=== PATIENT | female | born 1940 | race Caucasian/White ===

== ENCOUNTER 2017-06-25 06:40 | Emergency (ER) | payer MEDICARE, OTHER ==
[~2017-06-25] VITALS: Ht 154.9 cm; Wt 70.0 kg
[~2017-06-25 06:40] MED LIST: AMLO-218 PO; GLYB1TAB3 PO; INSU100I13 SC; INSU100I15 SC; ISOS60TA52 PO; LOSA25TA2 PO; MONT10TA21 PO; PREG50CA PO; SERT50TA PO; SITA100T8 PO
[2017-06-25 06:42] VITALS: Ht 154.9 cm; Wt 70.0 kg
[2017-06-25] MEDS ORDERED: KETOROLAC 60 MG INJ IM STA (07:11)
--- NOTE | 2017-06-25 08:21 | RADRPT ---
PROCEDURE: XR right Shoulder. CLINICAL INDICATION: Right shoulder pain TECHNIQUE: 3 views of the right shoulder are available for review. COMPARISON: None available FINDINGS: There is no acute fracture. Alignment is normal. There is mild to moderate acromioclavicular osteoarthrosis. Soft tissues are grossly unremarkable. IMPRESSION: 1. No radiographic evidence of acute osseous abnormality. 2. 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 RPTAT: [facility] .David Pérez MD, Date Time Electronically viewed and signed by .David Pérez MD, on 06/25/2017 08:21 .K/
--- NOTE | 2017-06-25 08:23 | RADRPT ---
PROCEDURE: Ultrasound of the right upper extremity venous system. CLINICAL INDICATION: Right upper extremity swelling and pain.. TECHNIQUE: Wiggins scale with and without compression, color doppler, spectral doppler of the venous system of the bilateral upper extremity was performed. Venous augmentation maneuvers were utilized. COMPARISON: No prior studies are available for comparison. FINDINGS: RIGHT: Jugular vein: Patent and compressible. Subclavian vein: Patent and compressible. Axillary vein: Patent and compressible. Brachial vein: Patent and compressible. Basilic vein: Patent and compressible. Cephalic vein: Patent and compressible. Soft tissues:Normal IMPRESSION: 1. No evidence of right upper extremity deep vein thrombosis. RPTAT: [facility] Physician Chris Date Time Electronically viewed and signed by Physician Chris on 06/25/2017 08:23 /
--- NOTE | 2017-06-25 08:23 | RADRPT ---
PROCEDURE: XR Cervical Spine. CLINICAL INDICATION: Neck pain. TECHNIQUE: Three views of the cervical spine were performed. Frontal, lateral, and AP open-mouth o dontoid. The images were reviewed on a PACS workstation. COMPARISON: None. FINDINGS: There is no radiographic evidence of acute fracture. There is trace likely degenerative anterolisthe sis of C4 on C5, approximately 2 mm. There is moderate to severe degenerative disc disease at C5-C6 with moderate degenerative disease at C4-C5 and C6-C7. There is prominent degenerative anterior enthesopathy at C5-C6 as well as uncovert ebral hypertrophy. There is moderate facet arthrosis from C3-C4 through C6-C7. The lung apices are clear. The prevertebral soft tissues are normal. IMPRESSION: 1. No radiographic evidence of acute osseous abnormality of the cervical spine. 2. Trace probable degenerative anterolisthesis of C4 on C5. 3. Multilevel discogenic disease as above, moderate to severe and predominant at C5-C6. RPTAT: UU .David Pérez MD, MD Date Time Electronically viewed and signed by .David Pérez MD, on 06/25/2017 08:23 .K/
[2017-06-25] MEDS ORDERED: TRAM50TA2 PO (08:32)
[2017-06-25] MEDS ORDERED: DICL100G37 TOP (08:32)
[2017-06-25] MEDS ORDERED: MED4DP PO (08:33)
[2017-06-25 09:07] VITALS: BP 152/86; PULSE 79; RESP 20
--- NOTE | 2017-06-25 10:02 | ERD ---
ER Documentation Chief Complaint Date/Time DATE: 06/25/17 TIME: 09:52 Chief Complaint Complains of right shoulder pain is on continued Physiotheraphy No CP HPI 76-year-old female complaining of right shoulder pain. Patient states that she has had shoulder pain for the last month and has been seen by physical therapy and receiving treatment. Patient has not had any imaging and feels that her pain is worsening. Patient has been taking Tylenol and ibuprofen with no alleviation of symptoms. Patient is right-hand dominant. Patient feels she is losing mobility of her right arm secondary to pain. Denies traumatic injuries. Denies chest pains or shortness of breath. Have numbness in her right arm and states she has swelling in right upper extremity that is worse in the morning but seems to improve throughout the day. ROS All systems reviewed and are negative except as per history of present illness. Medications Home Meds Active Scripts Methylprednisolone* (Medrol* DOSE PACK) 4 Mg/Dose-Pack Tab.ds.pk, 4 MG PO . DIRECTED, #1 PACKET Prov:MANI CISNEROS PA-C 06/25/17 Diclofenac Sodium* (Voltaren* Gel) 1% -100 Gm Gel, 2 GM TOP QID, #1 TUB Prov:MANI CISNEROS PA-C 06/25/17 Tramadol HCl (Tramadol HCl) 50 Mg Tablet, 50 MG PO Q4 Y for PAIN, #20 TAB Prov:MANI CISNEROS PA-C 06/25/17 Reported Medications Insulin Glargine,Hum.rec.anlog (Lantus Solostar) 100 Units/Ml Pen, 32 UNITS SC BID 06/03/12 Insuln Asp Prt/Insulin Aspart* (Novolog Mix 70-30 Flexpen*) 100 Units/Ml Pen, UNITS SC WITH MEALS 06/03/12 Pregabalin* (Lyrica*) 50 Mg Capsule, 50 MG PO BID 06/03/12 Sertraline Hcl* (Zoloft*) 50 Mg Tablet, 50 MG PO DAILY 06/03/12 Glyburide, Micro-Metformin Hcl (Glucovance) 1 Tab Tablet, 2 TAB PO BID 06/03/12 Losartan Potassium* (Cozaar*) 25 Mg Tablet, 25 MG PO DAILY 06/03/12 Montelukast Sodium* (Singulair*) 10 Mg Tablet, 10 MG PO DAILY 06/03/12 Sitagliptin* (Januvia*) 100 Mg Tablet, 100 MG PO DAILY 06/03/12 Isosorbide Mononitrate* (Imdur*) 60 Mg Tab.sr.24h, 60 MG PO DAILY 06/03/12 Amlodipine Besylate* (Norvasc*) 10 Mg Tablet, 10 MG PO DAILY 06/03/12 Allergies Allergies: Coded Allergies: Penicillins (Verified Allergy, Unknown, 06/25/17) codeine (Verified Allergy, Unknown, 06/25/17) morphine (Verified Allergy, Unknown, 06/25/17) valsartan (Verified Allergy, Unknown, 06/25/17) PMhx/Soc History of Surgery: Yes (R KNEE SURGERY 2009; HYSTERRECTOMY) Anesthesia Reaction: No Hx Neurological Disorder: No Hx Respiratory Disorders: Yes (BRONCHITIS) Hx Cardiac Disorders: Yes (HTN, [place] 2005) Hx Psychiatric Problems: No Hx Miscellaneous Medical Probl: Yes (DIABETES MELLITUS) Hx Alcohol Use: No Hx Substance Use: No Hx Tobacco Use: No Smoking Status: Never smoker Physical Exam Vitals Vital Signs Date Time Temp Pulse Resp B/P Pulse Ox O2 Delivery O2 Flow Rate FiO2 06/25/17 09:07 79 20 152/86 98 Room Air 06/25/17 06:42 98.2 68 20 161/74 97 Physical Exam GENERAL: The patient is well-appearing, well-nourished, in no acute distress NECK: C-spine is soft and supple. There is no meningismus. There is no cervical lymphadenopathy. No JVD. No bruits. No goiter. Tender to palpation over the right trapezius CHEST: Clear to auscultation bilaterally. There are no rales, wheezes or rhonchi. HEART: Regular rate and rhythm. No murmurs, clicks, rubs or gallops. No S3 or S4. EXTREMITIES: Equal pulses bilaterally. No obvious swelling to the right upper extremity. Neurovascular intact of the right distal extremity. No deformities or crepitus felt on right upper extremity exam. Decreased range of motion secondary to pain. Strength limited secondary to pain. Tender to palpation over the right AC joint. Normal ulnar median and radial nerve innervation. NEUROLOGIC: Alert and oriented. Cranial nerves II through XII intact. Motor strength in all 4 extremities with 5 out of 5 strength. Sensation grossly intact. Normal speech and gait. Babinski negative. DTR 2+ throughout. SKIN: There is no apparent rash or petechiae. The skin is warm and dry. Results 24 hrs Current Medications Medications (Trade) Dose Ordered Sig/Sharita Route PRN Reason Start Time Stop Time Status Last Admin Dose Admin Ketorolac Tromethamine (Toradol) 60 mg ONCE STAT IM 06/25/17 07:11 06/25/17 07:13 DC 06/25/17 07:22 Procedures/MDM DIAGNOSTIC IMAGING REPORT Patient: MAXINE SCHAEFFER : 1940 Age: 76 Sex: F MR #: [id number] DOS: 06/25/17710 Ordering MD: MASON CISNEROS PA-C Location: [facility] Room/Bed: PROCEDURE: XR Cervical Spine. CLINICAL INDICATION: Neck pain. TECHNIQUE: Three views of the cervical spine were performed. Frontal, lateral , and AP open-mouth odontoid. The images were reviewed on a PACS workstation. COMPARISON: None. FINDINGS: There is no radiographic evidence of acute fracture. There is trace likely degenerative anterolisthesis of C4 on C5, approximately 2 mm. There is moderate to severe degenerative disc disease at C5-C6 with moderate degenerative disease at C4-C5 and C6-C7. There is prominent degenerative anterior enthesopathy at C5-C6 as well as uncovertebral hypertrophy. There is moderate facet arthrosis from C3-C4 through C6-C7. The lung apices are clear. The prevertebral soft tissues are normal. IMPRESSION: 1. No radiographic evidence of acute osseous abnormality of the cervical spine. 2. Trace probable degenerative anterolisthesis of C4 on C5. 3. Multilevel discogenic disease as above, moderate to severe and predominant at C5-C6. DIAGNOSTIC IMAGING REPORT Patient: MAXINE SCHAEFFER : 1940 Age: 76 Sex: F MR #: [id number] DOS: 06/25/17710 Ordering MD: MASON CISNEROS PA-C Location: [facility] Room/Bed: PROCEDURE: XR right Shoulder. CLINICAL INDICATION: Right shoulder pain TECHNIQUE: 3 views of the right shoulder are available for review. COMPARISON: None available FINDINGS: There is no acute fracture. Alignment is normal. There is mild to moderate acromioclavicular osteoarthrosis. Soft tissues are grossly unremarkable. IMPRESSION: 1. No radiographic evidence of acute osseous abnormality. 2. 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 DIAGNOSTIC IMAGING REPORT Patient: MAXINE SCHAEFFER : 1940 Age: 76 Sex: F MR #: [id number] DOS: 06/25/17 0000 Ordering MD: MASON CISNEROS PA-C Location: [facility] Room/Bed: PROCEDURE: Ultrasound of the right upper extremity venous system. CLINICAL INDICATION: Right upper extremity swelling and pain.. TECHNIQUE: Wiggins scale with and without compression, color doppler, spectral doppler of the venous system of the bilateral upper extremity was performed. Venous augmentation maneuvers were utilized. COMPARISON: No prior studies are available for comparison. FINDINGS: RIGHT: Jugular vein: Patent and compressible. Subclavian vein: Patent and compressible. Axillary vein: Patent and compressible. Brachial vein: Patent and compressible. Basilic vein: Patent and compressible. Cephalic vein: Patent and compressible. Soft tissues: Normal IMPRESSION: 1. No evidence of right upper extremity deep vein thrombosis. ER Course: Toradol given in ED. MDM: 76-year-old female complaining of right shoulder pain. I have low suspicion for vascular insufficiency or neuro deficits. Patient's x-ray show signs of osteoarthritis which is likely the source of patient's pain. I have low suspicion for complete nerve impingement as patient's neuro exam is within normal limits. Patient is recommended to follow-up with orthopedics and she may need arthroscopic surgery. Patient will be given pain medication and given stretches to help prevent risk of adhesive capsulitis. Patient is told to follow-up with her primary doctor to determine if physical therapy should be continued. Patient is discharged with strict ER precautions and recommended to follow-up with primary within 1-2 days for close evaluation. Departure Diagnosis: Primary Impression: Shoulder pain Condition: Stable Patient Instructions: Shoulder Pain (Uncertain Cause) Referrals: AVIVA THOMPSON (PCP) Additional Instructions: FOLLOW UP WITH YOUR PRIMARY CARE PHYSICIAN TOMORROW.Return to this facility if you are not improving as expected. MANI CISNEROS PA-C Jun 25, 2017 10:02
== END 2017-06-25 09:08 | disposition home or self-care (01) ==
LOC: FTE 06:40
DX: M25.511 Pain in right shoulder (principal); E11.9 Type 2 diabetes mellitus without complications; I10 Essential (primary) hypertension; Z79.4 Long term (current) use of insulin; Z79.84 Long term (current) use of oral hypoglycemic drugs
CPT/HCPCS: 72040; 73030; 93971; 96372; 99285; J1885